=== PATIENT | female | born 1995 | race Asian ===

== ENCOUNTER 2019-05-09 12:34 | Emergency (ER) | payer OTHER ==
[~2019-05-09] VITALS: Ht 152.4 cm; Wt 56.7 kg
--- NOTE | 2019-05-09 12:35 | NUR ---
Patient to ER bed CHAIR 1 to gown for evaluation. Side rails up.
[2019-05-09 12:42] VITALS: BP_SYST 125
--- NOTE | 2019-05-09 12:43 | NUR ---
ER Dr. YOUNG at bedside examining patient.
--- NOTE | 2019-05-09 12:55 | NUR ---
PATIENT IN ER BECAUSE SHE POKED SELF WITH NEEDLE TO RIGHT THUMP AFTER GIVING LOVENOX TO PATIENT. BLEEDING CONTROLED. PATIENT NOT COMPLAININF OF PAIN.
[2019-05-09 13:34] VITALS: BP_SYST 125
--- NOTE | 2019-05-09 13:34 | NUR ---
Patient given written and verbal discharge instructions and verbalizes understanding. ER MD discussed with patient the results and treatment provided. Patient in stable condition. ID arm band removed. NO Rx given. Patient educated on pain management and to follow up with PMD. Pain Scale 0/10. Opportunity for questions provided and answered. Medication side effect fact sheet provided.
[2019-05-10 14:06] LABS: HEPATITIS B CORE AB, TOTAL Negative (Negative); HEPATITIS B SURFACE AG Negative (Negative); HEPATITIS C VIRUS AB 0.2 s/co ratio (0.0-0.9)
== END 2019-05-09 13:34 | disposition home or self-care (01) ==
LOC: SED 12:34
DX: S61.031A Puncture wound without foreign body of right thumb without damage to nail, initial encounter (principal); W46.1XXA Contact with contaminated hypodermic needle, initial encounter; Y93.89 Activity, other specified; Y92.89 Other specified places as the place of occurrence of the external cause; Y99.8 Other external cause status
CPT/HCPCS: 36415; 86704; 86706; 86803; 87340; 99283

== ENCOUNTER 2019-06-14 09:36 | Outpatient (CLI) | payer OTHER ==
[2019-06-15 07:11] LABS: HEPATITIS B CORE AB, TOTAL Negative (Negative); HEPATITIS B SURFACE AG Negative (Negative); HEPATITIS C VIRUS AB <0.1 s/co ratio (0.0-0.9)
== END 2019-06-14 20:05 | disposition home or self-care (01) ==
LOC: SLB 09:36
PROVIDERS: ATTEND Internal Medicine Hospice and Palliative Medicine
DX: Z77.21 Contact with and (suspected) exposure to potentially hazardous body fluids (principal); W46.0XXA Contact with hypodermic needle, initial encounter; T14.8XXA Other injury of unspecified body region, initial encounter; Y93.F9 Activity, other caregiving; Y92.238 Other place in hospital as the place of occurrence of the external cause; Y99.0 Civilian activity done for income or pay; Z20.5 Contact with and (suspected) exposure to viral hepatitis
CPT/HCPCS: 36415; 86704; 86706; 86803; 87340

== ENCOUNTER 2019-09-19 09:59 | Outpatient (CLI) | payer OTHER ==
[2019-09-20 09:07] LABS: HEPATITIS B CORE AB, TOTAL Negative (Negative); HEPATITIS B SURFACE AG Negative (Negative); HEPATITIS C VIRUS AB <0.1 s/co ratio (0.0-0.9)
== END 2019-09-19 19:32 | disposition home or self-care (01) ==
LOC: SLB 09:59
PROVIDERS: ATTEND Internal Medicine Hospice and Palliative Medicine
DX: Z77.21 Contact with and (suspected) exposure to potentially hazardous body fluids (principal)
CPT/HCPCS: 36415; 86704; 86706; 86803; 87340

== ENCOUNTER 2020-03-20 10:37 | Outpatient (CLI) | payer OTHER ==
[2020-03-21 10:13] LABS: HEPATITIS B CORE AB, TOTAL Negative (Negative); HEPATITIS B SURFACE AG Negative (Negative); HEPATITIS C VIRUS AB <0.1 s/co ratio (0.0-0.9)
== END 2020-03-20 20:24 | disposition home or self-care (01) ==
LOC: SLB 10:37
PROVIDERS: ATTEND Internal Medicine Hospice and Palliative Medicine
DX: T14.90XA Injury, unspecified, initial encounter (principal); W46.0XXA Contact with hypodermic needle, initial encounter; Y93.89 Activity, other specified; Y92.89 Other specified places as the place of occurrence of the external cause; Y99.8 Other external cause status
CPT/HCPCS: 36415; 86704; 86706; 86803; 87340